=== PATIENT | male | born 1955 | race Asian ===

== ENCOUNTER 2017-07-19 14:55 | Emergency (ER) | payer OTHER ==
[~2017-07-19] VITALS: Ht 177.8 cm; Wt 102.3 kg
[2017-07-19] MEDS ORDERED: LOVA20 PO (15:16)
[2017-07-19] MEDS ORDERED: TAMS0.4C32 PO (15:16)
[2017-07-19] MEDS ORDERED: ASPI81 PO (15:16)
[2017-07-19] MEDS ORDERED: AMLO-511 PO (15:16)
[2017-07-19] MEDS ORDERED: PROPARACAINE HCL 0.5% 15 ML OPHTHALMIC SOLUTION OU ONE (18:00)
[2017-07-19] MEDS ORDERED: FLUORESCEIN SODIUM 1 MG STRIP ONE (18:01)
[2017-07-19 18:16] VITALS: BP 144/75
== END 2017-07-19 19:38 | disposition home or self-care (01) ==
LOC: EMS 14:57
DX: S05.01XA Injury of conjunctiva and corneal abrasion without foreign body, right eye, initial encounter (principal); S05.02XA Injury of conjunctiva and corneal abrasion without foreign body, left eye, initial encounter; Z79.82 Long term (current) use of aspirin; I10 Essential (primary) hypertension; Z79.899 Other long term (current) drug therapy; X58.XXXA Exposure to other specified factors, initial encounter; Y93.89 Activity, other specified; Y92.89 Other specified places as the place of occurrence of the external cause; Y99.8 Other external cause status
CPT/HCPCS: 99283